=== PATIENT | female | born 1980 | race American Indian/Alaskan Native ===

== ENCOUNTER 2017-11-17 12:49 | Inpatient (IN) | payer BC ==
--- NOTE | 2017-11-17 12:53 | ED PDOC ---
Arrival/HPI - General Time Seen by Provider: 11/17/17 12:52 Historian: Patient - History of Present Illness Narrative History of Present Illness (Text): 11/17/17 12:53 37 y/o female, no significant pmh, nkda, c/o coughing and shortness of breath x 4 weeks with left ear pain with decrease hearing from the left ear x 2 weeks. Pt. stated that she was seen by another doctor for lt. ear pain and decrease hearing about 2 weeks ago with tinnitius and completed the course of the antibiotic. Pt. stated that she has been coughing as well with for the past 4 weeks, no night sweat, no dizziness, no rash, no numbness or tingling, no other medical or psychological complaints. Past Medical History - Provider Review Nursing Documentation Reviewed: Yes Family/Social History - Physician Review Nursing Documentation Reviewed: Yes Family/Social History: Unknown Family HX Allergies/Home Meds Allergies/Adverse Reactions: Allergies No Known Allergies Allergy (Verified 11/17/17 13:17) Home Medications: Home Meds Medication Instructions Recorded Confirmed No Known Home Med 11/17/17 11/17/17 Review of Systems - Review of Systems Constitutional: absent: Fatigue, Fevers Eyes: absent: Vision Changes ENT: Tinnitus (lt. ), Other (lt. ear pain and decrease hearing). absent: Hearing Changes, Voice Changes, Sore Throat, Rhinorrhea Respiratory: SOB, Cough, Wheezing. absent: Sputum Cardiovascular: absent: Chest Pain Gastrointestinal: absent: Abdominal Pain, Diarrhea, Nausea, Vomiting Skin: absent: Rash, Pruritis Neurological: absent: Headache, Dizziness Psychiatric: absent: Anxiety, Depression, Suicidal Ideation Physical Exam Vital Signs Reviewed: Yes Vital Signs Temp Pulse Resp BP Pulse Ox 11/17/17 16:05 88 18 96/58 L 100 11/17/17 13:13 97.9 F 113 H 20 106/62 96 Temperature: Afebrile Blood Pressure: Normal Pulse: Tachycardic Respiratory Rate: Normal Appearance: Positive for: Well-Appearing, Non-Toxic, Comfortable Pain Distress: Mild Mental Status: Positive for: Alert and Oriented X 3 - Systems Exam Head: Present: Atraumatic, Normocephalic Pupils: Present: PERRL Extroacular Muscles: Present: EOMI Conjunctiva: Present: Normal Ears: Present: NORMAL TM, Normal Canal, Other (no mastoid tenderness, no visible auditory canals erythematous or swelling, able to hear from the left ear with whispering but not as clear as the right ear as per patient. ). No: Erythema, TM Bulging, Fluid, TM Perf Mouth: Present: Moist Mucous Membranes Pharnyx: No: ERYTHEMA, EXUDATE, TONSILS ENLARGED, Muffled/Hoarse Voice Nose (External): Present: Atraumatic. No: Abrasion, Contusion, Laceration Nose (Internal): Present: Normal Inspection, No Active Bleeding. No: Rhinorrhea , Septal Hematoma, Epistaxis Neck: Present: Normal Range of Motion, Trachea Midline. No: MIDLINE TENDERNESS , Paraspinal Tenderness, Lymphadenopathy Respiratory/Chest: Present: Wheezes (Lt. mid lobe), Rales. No: Respiratory Distress, Accessory Muscle Use, Decreased Breath Sounds, Retracting, Rhonchi, Tachypneic, Tender to Palpation Cardiovascular: Present: Regular Rate and Rhythm, Normal S1, S2. No: Murmurs Abdomen: Present: Normal Bowel Sounds. No: Tenderness, Distention, Peritoneal Signs, Rebound, Guarding Back: Present: Normal Inspection Upper Extremity: Present: Normal Inspection. No: Cyanosis, Edema Lower Extremity: Present: Normal Inspection. No: Edema Neurological: Present: GCS=15, Speech Normal, Motor Func Grossly Intact, Gait Normal, Memory Normal Skin: Present: Warm, Dry, Normal Color. No: Rashes Psychiatric: Present: Alert, Oriented x 3, Normal Insight, Normal Concentration Medical Decision Making ED Course and Treatment: 11/17/17 13:36 -labs/dimer -chest xray -duoneb -observe and reassess 11/17/17 14:26 -Urine hcg negative -Chest xray show no active disease -Labs are non-significant except wbc 14.2, d-dimer 396, CTA ordered -UA show no UTI -Tachycardic, IVF ordered 11/17/17 17:33 -CTA show no evidence of acute central pulmonary embolus. Note however that the distal branches particularly in the left lower lobe are poorly seen due to the presence of bilateral posterior lower lobe consolidation changes. Findings most likely represent infiltrate changes rather than chronic infarcts as detailed above. Clinical correlation recommended. -IV rocephine and azithromycin/blood cultures ordered. -I discussed the case/radiology result with Dr. Godwin, stated this is pneumonia and unlikely PE with no anticoagulant needed. -Pt. has exertional shortness of breath and wheezing, admits chills at night but no fever, wbc 14.2 with tachycardia and chills, clinically appear bilateral consolidations which she will need IV antibiotic and clinically need to be admitted to rule out PE. Therefore the patient will need admission. -Paging the [facility] consultant Dr. Coates for admission. 11/17/17 18:08 -Pt. lactic acid 2.4/tachycardic/wbc 14.2, code sepsis paged, no signs of septic shock, no IV bolus 30cc/kg indicated. 11/17/17 18:27 -I spoke to Dr. Coates including the labs/CT readings, agreed this is likely bilateral pneumonia and no obvious PE, agreed on anticoagulant indicated, admit to [facility] for admission. -I discussed with Dr. Godwin about the case and agreed on the admission, Dr. Godwin is busy and taking care of critical care patient which he request me to put in the admission order. - Lab Interpretations Lab Results: 11/17/17 13:45 11/17/17 13:45 Lab Results 11/17/17 17:45: pO2 50, VBG pH 7.29 L, VBG pCO2 53.0, VBG HCO3 25.5, VBG Total CO2 27.1, VBG O2 Sat (Calc) 86.9 H, VBG Base Excess -1.9 L, VBG Potassium 3.6, Glucose 99, Lactate 2.4 H, FiO2 21.0, Sodium 138.0, Chloride 105.0, Venous Blood Potassium 3.6 11/17/17 14:20: Urine Color Yellow, Urine Appearance Clear, Urine pH 7.0, Ur Specific [place] 1.010, Urine Protein Negative, Urine Glucose (UA) Negative, Urine Ketones Negative, Urine Blood Negative, Urine Nitrate Negative, Urine Bilirubin Negative, Urine Urobilinogen 1.0 H, Ur Leukocyte Esterase Negative 11/17/17 13:45: PT 15.0 H, INR 1.31 H, APTT 29.6 11/17/17 13:45: WBC 14.2 H, RBC 4.07, Hgb 12.7, Hct 37.7, MCV 92.6, MCH 31.2, MCHC 33.7, RDW 12.3, Plt Count 289, MPV 9.9, Gran % 82.1 H, Lymph % (Auto) 8.2 L , [place] % (Auto) 9.3 H, Eos % (Auto) 0.3 L, Baso % (Auto) 0.1, Gran # 11.67 H, Lymph # 1.2, [place] # 1.3 H, Eos # 0.0, Baso # 0.02 11/17/17 13:45: Sodium 137, Potassium 4.2, Chloride 100, Carbon Dioxide 30, Anion Gap 12, BUN 8, Creatinine 0.7, Est GFR ( Amer) > 60, Est GFR (Non- Af Amer) > 60, Random Glucose 97, Calcium 9.5, Total Bilirubin 0.7, AST 23, ALT 27, Alkaline Phosphatase 65, Total Protein 8.7 H, Albumin 4.2, Globulin 4.5, Albumin/Globulin Ratio 0.9 L 11/17/17 13:45: D-Dimer, Quantitative 396 H I have reviewed the lab results: Yes Interpretation: Abnormal lab values (wbc 14.2) - RAD Interpretation Radiology Orders: 11/17/17 13:22 CHEST TWO VIEWS (PA/LAT) [RAD] Stat 11/17/17 14:23 ANGIO CHEST PE PROTOCOL [CT] Stat Chest xray: HISTORY: cough x 4 weeks COMPARISON: No prior. TECHNIQUE: Chest PA and lateral FINDINGS: LUNGS: No active pulmonary disease. PLEURA: No significant pleural effusion identified. No pneumothorax apparent. CARDIOVASCULAR: Normal. OSSEOUS STRUCTURES: No significant abnormalities. VISUALIZED UPPER ABDOMEN: Normal. OTHER FINDINGS: None. IMPRESSION: No active disease. CTA Chest: PROCEDURE: CT Chest with contrast (Pulmonary Angiogram) HISTORY: cough x 4 weeks, wheezing, elevated d-dimer COMPARISON: Correlation made with chest radiograph obtained earlier same day TECHNIQUE: Axial computed tomography images were obtained of the chest in the pulmonary arterial phase of enhancement. Coronal and sagittal reformatted images were created and reviewed. Intravenous contrast dose: 100 cc Visipaque 320 contrast material. Radiation dose: Total exam DLP = 169.77 mGy-cm. This CT exam was performed using one or more of the following dose reduction techniques: Automated exposure control, adjustment of the mA and/or kV according to patient size, and/or use of iterative reconstruction technique. FINDINGS: PULMONARY ARTERIES: Visualized pulmonary trunk, right and left main, lobar, segmental and proximal subsegmental branches of the pulmonary arteries are well opacified with no definitive filling defects seen to suggest acute pulmonary embolus. . The distal branches particularly in the posterior lower lung ledezma are not well delineated due to the presence of a patchy bilateral atelectasis and or infiltrate changes. Findings most likely represent bilateral pneumonia however note that the possibility of a chronic bilateral lower lobe infarcts with re- cannulization of the distal pulmonary emboli cannot be completely excluded though this is under likely. Clinical correlation recommended. . The pulmonary trunk measures approximately 2 cm. . AORTA: Ascending thoracic aorta measures approximately LUNGS: Patchy bilateral posterior lower lobe atelectatic and or infiltrate changes are present. . In addition, there is some minor linear scarring and/or chronic atelectasis in the the inferior PLEURAL SPACES: Unremarkable. No effusion or pneumothorax. HEART: Heart size within range of normal. No significant pericardial effusion. Ascending thoracic aorta measures approximately 2.4 cm and descending thoracic aorta measures approximately 1.8 cm. Three-vessel arch. LYMPH NODES: No lymphadenopathy. No significant mediastinal or hilar adenopathy. BONES, CHEST WALL: Minor multilevel degenerative spondylosis of the thoracic spine. No acute compression fractures no retropulsed fragments. OTHER FINDINGS: Unremarkable. IMPRESSION: No evidence of acute central pulmonary embolus. Note however that the distal branches particularly in the left lower lobe are poorly seen due to the presence of bilateral posterior lower lobe consolidation changes. Findings most likely represent infiltrate changes rather than chronic infarcts as detailed above. Clinical correlation recommended. Veneer Sorter: Radiologist - Medication Orders Current Medication Orders: Azithromycin (Zithromax 500mg In Ns) 500 mg in 250 mls @ 167 mls/hr IVPB STAT STA PRN Reason: Protocol Stop: 11/17/17 18:48 Discontinued Medications Albuterol/Ipratropium (Duoneb 3 Mg/0.5 Mg (3 Ml) Ud) 3 ml IH STAT STA Stop: 11/17/17 13:24 Last Admin: 11/17/17 13:41 Dose: 3 ml Albuterol/Ipratropium (Duoneb 3 Mg/0.5 Mg (3 Ml) Ud) 3 ml IH STAT STA Stop: 11/17/17 13:24 Last Admin: 11/17/17 14:00 Dose: 3 ml Sodium Chloride (Sodium Chloride 0.9%) 1,000 mls @ 999 mls/hr IV .Q1H1M STA Stop: 11/17/17 15:24 Last Admin: 11/17/17 14:52 Dose: 999 mls/hr eMAR Start Stop Document 11/17/17 14:52 SRE (Rec: 11/17/17 14:53 [id number] [id number]) Intravenous Solution Start Date 11/17/17 Start Time 14:50 End Date 11/17/17 End time 15:50 Total Infusion Time 60 Ceftriaxone Sodium (Rocephin 1 Gram Ivpb) 1 gm in 100 mls @ 200 mls/hr IVPB STAT STA PRN Reason: Protocol Stop: 11/17/17 17:48 Last Admin: 11/17/17 17:00 Dose: 200 mls/hr eMAR Start Stop Document 11/17/17 17:00 SRE (Rec: 11/17/17 17:50 SRE [id number]) Intravenous Solution Start Date 11/17/17 Start Time 17:30 End Date 11/17/17 End time 18:30 Total Infusion Time 60 - PA / LOCAL OPERATOR / Resident Statement /DO has reviewed & agrees with the documentation as recorded. Disposition/Present on Arrival - Present on Arrival Any Indicators Present on Arrival: No History of DVT/PE: No History of Uncontrolled Diabetes: No Urinary Catheter: No History of Decub. Ulcer: No - Disposition Have Diagnosis and Disposition been Completed?: Yes Diagnosis: Bilateral pneumonia, Shortness of breath, Abnormal computed tomography angiography (CTA), Sepsis Disposition: HOSPITALIZED Disposition Time: 17:40 Patient Plan: Admission, Telemetry Patient Problems: Current Active Problems Problem Status Onset Abnormal computed tomography angiography (CTA) Acute Bilateral pneumonia Acute Sepsis Acute Shortness of breath Acute Condition: STABLE Discharge Instructions (ExitCare): Sepsis (ED) Referrals: Toothpickelizabeth Kelley, [Primary Care Provider] - Follow up with primary
[2017-11-17 13:12] VITALS: BMI 21.9
[2017-11-17] MEDS ORDERED: Albuterol-Ipratrop 3 mg / 0.5 (3 ml) UD IH STA ×2 (13:23)
[2017-11-17 14:00] LABS: BASO # 0.02 K/mm3 (0.0-2.0); BASO % 0.1 % (0.0-3.0); EOS % 0.3 % (1.5-5.0); GRAN # 11.67 (1.4-6.5); GRAN % 82.1 % (50.0-68.0); HEMOGLOBIN 12.7 g/dL (12.0-16.0); LYMPH # 1.2 (1.2-3.4); LYMPH % 8.2 % (22.0-35.0); MEAN CELL VOLUME 92.6 fl (80.0-105.0); MEAN CORPUSCULAR HEMOGLOBIN 31.2 pg (25.0-35.0); MEAN CORPUSCULAR HGB CONC 33.7 g/dl (31.0-37.0); MEAN PLATELET VOLUME 9.9 fl (7.0-11.0); MONO # 1.3 (0.1-0.6); MONO % 9.3 % (1.0-6.0); RBC 4.07 10^6/uL (3.5-6.1); RED CELL DISTRIBUTION WIDTH 12.3 % (11.5-14.5); WHITE BLOOD COUNT 14.2 10^3/ul (4.5-11.0)
[2017-11-17 14:09] LABS: ALB/GLOB RATIO 0.9 (1.1-1.8); ALBUMIN 4.2 g/dL (3.0-4.8); ALT/SGPT 27 U/L (7-56); AST/SGOT 23 U/L (14-36); BLOOD UREA NITROGEN 8 mg/dL (7-21); CALCIUM 9.5 mg/dL (8.4-10.5); GFR AFRICAN-AMERICAN > 60; GFR NON-AFRICAN AMERICAN > 60
--- NOTE | 2017-11-17 14:20 | RAD ---
HISTORY: cough x 4 weeks COMPARISON: No prior. TECHNIQUE: Chest PA and lateral FINDINGS: LUNGS: No active pulmonary disease. PLEURA: No significant pleural effusion identified. No pneumothorax apparent. CARDIOVASCULAR: Normal. OSSEOUS STRUCTURES: No significant abnormalities. VISUALIZED UPPER ABDOMEN: Normal. OTHER FINDINGS: None. IMPRESSION: No active disease.
[2017-11-17] MEDS ORDERED: Sodium Chloride 0.9% 1,000 ML IV STA (14:24)
[2017-11-17] MEDS ORDERED: Iodixanol 320 MG/ML 100 ML BOTTLE IV ONE (14:53)
[2017-11-17 14:55] LABS: URINE BILIRUBIN NEGATIVE (NEGATIVE); URINE BLOOD NEGATIVE (NEGATIVE); URINE GLUCOSE (UA) NEGATIVE (NEGATIVE); URINE LEUKOCYTE ESTERASE NEGATIVE Leu/uL (NEGATIVE); URINE NITRATE NEGATIVE (NEGATIVE); URINE PROTEIN NEGATIVE mg/dL (<30 mg/dL)
[2017-11-17 15:01] LABS: URINE APPEARANCE CLEAR (CLEAR); URINE COLOR YELLOW (YELLOW)
--- NOTE | 2017-11-17 17:16 | CT ---
PROCEDURE: CT Chest with contrast (Pulmonary Angiogram) HISTORY: cough x 4 weeks, wheezing, elevated d-dimer COMPARISON: Correlation made with chest radiograph obtained earlier same day TECHNIQUE: Axial computed tomography images were obtained of the chest in the pulmonary arterial phase of enhancement. Coronal and sagittal reformatted images were created and reviewed. Intravenous contrast dose: 100 cc Visipaque 320 contrast material. Radiation dose: Total exam DLP = 169.77 mGy-cm. This CT exam was performed using one or more of the following dose reduction techniques: Automated exposure control, adjustment of the mA and/or kV according to patient size, and/or use of iterative reconstruction technique. FINDINGS: PULMONARY ARTERIES: Visualized pulmonary trunk, right and left main, lobar, segmental and proximal subsegmental branches of the pulmonary arteries are well opacified with no definitive filling defects seen to suggest acute pulmonary embolus. . The distal branches particularly in the posterior lower lung ledezma are not well delineated due to the presence of a patchy bilateral atelectasis and or infiltrate changes. Findings most likely represent bilateral pneumonia however note that the possibility of a chronic bilateral lower lobe infarcts with re- cannulization of the distal pulmonary emboli cannot be completely excluded though this is under likely. Clinical correlation recommended. . The pulmonary trunk measures approximately 2 cm. . AORTA: Ascending thoracic aorta measures approximately LUNGS: Patchy bilateral posterior lower lobe atelectatic and or infiltrate changes are present. . In addition, there is some minor linear scarring and/or chronic atelectasis in the the inferior PLEURAL SPACES: Unremarkable. No effusion or pneumothorax. HEART: Heart size within range of normal. No significant pericardial effusion. Ascending thoracic aorta measures approximately 2.4 cm and descending thoracic aorta measures approximately 1.8 cm. Three-vessel arch. LYMPH NODES: No lymphadenopathy. No significant mediastinal or hilar adenopathy. BONES, CHEST WALL: Minor multilevel degenerative spondylosis of the thoracic spine. No acute compression fractures no retropulsed fragments. OTHER FINDINGS: Unremarkable. IMPRESSION: No evidence of acute central pulmonary embolus. Note however that the distal branches particularly in the left lower lobe are poorly seen due to the presence of bilateral posterior lower lobe consolidation changes. Findings most likely represent infiltrate changes rather than chronic infarcts as detailed above. Clinical correlation recommended. These findings discussed with YUDI Means at approximately 5:09 p.m. with written down and read back verification.
[2017-11-17] MEDS ORDERED: Azithromycin 500MG/NS 250ml 500 MG/250 ML BAG IVPB STA (17:19)
[2017-11-17] MEDS ORDERED: cefTRIAXone 1 gm 1 GM/100 ML BAG IVPB STA (17:19)
[2017-11-17 18:00] LABS: INR 1.31 (0.93-1.08); PARTIAL THROMBOPLASTIN TIME 29.6 Seconds (25.1-36.5)
[2017-11-17 18:04] LABS: VENOUS BLOOD GAS BASE EXCESS -1.9 mmol/L (0.0-2.0); VENOUS BLOOD GAS PO2 50 mm/Hg (30-55); VENOUS BLOOD PH 7.29 (7.32-7.43)
[2017-11-17] MEDS: Sodium Chloride 0.9% 1,000 ML IV SCH (18:41)
[2017-11-17] MEDS ORDERED: Promethazine DM 6.25 mg-15 mg/5 ml Syrup PO STA (20:32)
[2017-11-17] MEDS: guaiFENesin DM 100 mg-10 mg/5 ml UD PO PRN (20:41)
[2017-11-17] MEDS: Albuterol-Ipratrop 3 mg / 0.5 (3 ml) UD IH SCH (21:01)
[2017-11-17 21:18] LABS: VENOUS BLOOD GAS BASE EXCESS 2.4 mmol/L (0.0-2.0); VENOUS BLOOD GAS PO2 38 mm/Hg (30-55); VENOUS BLOOD PH 7.36 (7.32-7.43)
--- NOTE | 2017-11-17 22:30 | PCM.SEPTIC ---
Sepsis Progress Note - Reassessment Type Date of Evaluation: 11/17/17 Time of Evaluation: 22:28 Reassessment Type: Non-invasive reassessment - Non Invasive Reassessment Were the most recent vital sign reviewed: Yes Vital Sign (Latest): Temp Pulse Resp BP Pulse Ox 100.1 F H 101 H 18 126/71 99 11/17/17 20:56 11/17/17 20:56 11/17/17 20:56 11/17/17 21:00 11/17/17 20:56 Cardiovascular: Yes: Tachycardia. No: Regular Rate, Rhythm, Bradycardia, Irregularly Irregular Respiratory: Yes: Rhonchi (Bilateral bases). No: Normal Breath Sounds, Decreased Breath Sounds, Accessory Muscle Use, Crackles, Rales, Stridor, Wheezing, Respiratory Distress Capillary Refill: Normal (Less than 2 sec) Skin: Normal Color
[2017-11-18] MEDS: Albuterol-Ipratrop 3 mg / 0.5 (3 ml) UD IH SCH ×3 (01:44→19:51)
[2017-11-18 08:10] LABS: HEMOGLOBIN 10.5 g/dL (12.0-16.0); MEAN CELL VOLUME 93.1 fl (80.0-105.0); MEAN CORPUSCULAR HEMOGLOBIN 30.3 pg (25.0-35.0); MEAN CORPUSCULAR HGB CONC 32.6 g/dl (31.0-37.0); MEAN PLATELET VOLUME 10.2 fl (7.0-11.0); RBC 3.46 10^6/uL (3.5-6.1); RED CELL DISTRIBUTION WIDTH 12.6 % (11.5-14.5); WHITE BLOOD COUNT 11.5 10^3/ul (4.5-11.0)
[2017-11-18] MEDS: cefTRIAXone 1 gm 1 GM/100 ML BAG IVPB SCH (09:16)
[2017-11-18] MEDS: Azithromycin 500 MG in Sodium Chloride 0.9% 250 ML IV SCH (09:18)
[2017-11-18] MEDS: Sodium Chloride 0.9% 1,000 ML IV SCH ×2 (09:18→17:01)
[2017-11-18 16:25] LABS: IRON 27 ug/dL (45-180)
[2017-11-18 16:35] LABS: TOTAL IRON BINDING CAPACITY 220 ug/dL (265-497)
[2017-11-18 16:40] LABS: % IRON SATURATION 12 % (20-55)
--- NOTE | 2017-11-18 17:02 | CP.PCM.CON ---
History of Present Illness - History of Present Illness History of Present Illness: Infectious Disease Consultation: November 37 yo female with no previous medical history presenting with cough and shortness of breath for the past 4 weeks with 2 week history of left ear pain and tinnitus. Patient received antibiotics of Amoxicillin with improvement of the left ear pain. She still has decreased hearing in the left ear. She complains also of left lower chest/flank pain. Chills started about 1 week ago. PMHx: Denies PSHx: Denies Allergies: NKDA Social Hx: No tobacco, EtOH, or illicit drug use Has two children - 8 months and 4 years. 4 yo is in school. 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 Active Medications Acetaminophen (Tylenol 325mg Tab) 650 mg PO Q6H PRN PRN Reason: Fever >100.4 F Albuterol/Ipratropium (Duoneb 3 Mg/0.5 Mg (3 Ml) Ud) 3 ml IH [id number] ROBBY Last Admin: 11/18/17 10:22 Dose: 3 ml Guaifenesin/Dextromethorphan (Robitussin Dm) 5 ml PO Q4H PRN PRN Reason: Cough Last Admin: 11/17/17 20:41 Dose: 5 ml Sodium Chloride (Sodium Chloride 0.9%) 1,000 mls @ 100 mls/hr IV .Q10H ROBBY Last Admin: 11/18/17 09:18 Dose: 100 mls/hr Ceftriaxone Sodium (Rocephin 1 Gram Ivpb) 1 gm in 100 mls @ 100 mls/hr IVPB DAILY ROBBY PRN Reason: Protocol Last Admin: 11/18/17 09:16 Dose: 100 mls/hr Azithromycin 500 mg/ Sodium (Chloride) 250 mls @ 250 mls/hr IV DAILY ROBBY PRN Reason: Protocol Last Admin: 11/18/17 09:18 Dose: 250 mls/hr Family Hx: none given ROS: No fevers, nausea, vomiting, diarrhea, headaches, dizziness, chest pain, abdominal pain, melena, hematuria, hematemesis, hematochezia, depression, anxiety. Patient with left ear pain, cough, SOB, chills. Past Patient History - Infectious Disease Hx of Infectious Diseases: None - Past Social History Smoking Status: Never Smoked - MUSCULOSKELETAL/RHEUMATOLOGICAL Hx Musculoskeletal Disorders: No Hx Falls: No Hx Unsteady Gait: No - GENITOURINARY/GYNECOLOGICAL Hx Sexually Transmitted Disorders: No Hx Urinary Tract Infection: No - PSYCHIATRIC Hx Psychophysiologic Disorder: No Hx Physical Abuse: No Hx Sexual Abuse: No - SURGICAL HISTORY Hx Surgeries: Yes Other/Comment: - ANESTHESIA Hx Anesthesia: No Hx Anesthesia Reactions: No Hx Malignant Hyperthermia: No Meds Allergies/Adverse Reactions: Allergies Allergy/AdvReac Type Severity Reaction Status Date / Time No Known Allergies Allergy Verified 11/17/17 13:17 - Medications Medications: Current Medications Acetaminophen (Tylenol 325mg Tab) 650 mg PO Q6H PRN PRN Reason: Fever >100.4 F Albuterol/Ipratropium (Duoneb 3 Mg/0.5 Mg (3 Ml) Ud) 3 ml IH [id number] ROBBY Last Admin: 11/18/17 10:22 Dose: 3 ml Guaifenesin/Dextromethorphan (Robitussin Dm) 5 ml PO Q4H PRN PRN Reason: Cough Last Admin: 11/17/17 20:41 Dose: 5 ml Sodium Chloride (Sodium Chloride 0.9%) 1,000 mls @ 100 mls/hr IV .Q10H ROBBY Last Admin: 11/18/17 09:18 Dose: 100 mls/hr Ceftriaxone Sodium (Rocephin 1 Gram Ivpb) 1 gm in 100 mls @ 100 mls/hr IVPB DAILY ROBBY PRN Reason: Protocol Last Admin: 11/18/17 09:16 Dose: 100 mls/hr Azithromycin 500 mg/ Sodium (Chloride) 250 mls @ 250 mls/hr IV DAILY ROBBY PRN Reason: Protocol Last Admin: 11/18/17 09:18 Dose: 250 mls/hr Physical Exam - Constitutional Appears: Non-toxic, No Acute Distress - Head Exam Head Exam: ATRAUMATIC, NORMOCEPHALIC - Eye Exam Eye Exam: EOMI, PERRL Pupil Exam: NORMAL ACCOMODATION, PERRL - ENT Exam ENT Exam: Mucous Membranes Moist, Normal External Ear Exam, TM's Normal Bilaterally - Neck Exam Neck exam: Positive for: Full Rom, Normal Inspection - Respiratory Exam Respiratory Exam: Clear to Auscultation Bilateral, NORMAL BREATHING PATTERN. absent: Rales, Rhonchi, Wheezes - Cardiovascular Exam Cardiovascular Exam: REGULAR RHYTHM, RRR, +S1, +S2 - GI/Abdominal Exam GI & Abdominal Exam: Normal Bowel Sounds, Soft. absent: Distended, Tenderness - Extremities Exam Extremities exam: Positive for: full ROM, normal inspection - Neurological Exam Neurological exam: Alert, CN II-XII Intact, Normal Gait, Oriented x3 - Psychiatric Exam Psychiatric exam: Normal Affect, Normal Mood - Skin Skin Exam: Intact, Normal Color, Warm Results - Vital Signs Recent Vital Signs: Last Vital Signs Temp 98.1 F 11/18/17 16:19 Pulse 94 H 11/18/17 16:19 Resp 20 11/18/17 16:19 BP 103/67 11/18/17 16:19 Pulse Ox 99 11/18/17 16:19 - Labs Result Diagrams: 11/18/17 07:00 11/17/17 13:45 Labs: Laboratory Results - last 24 hr 11/17/17 11/18/17 11/18/17 21:10 07:00 08:00 WBC 11.5 H RBC 3.46 L Hgb 10.5 L D Hct 32.2 L MCV 93.1 MCH 30.3 MCHC 32.6 RDW 12.6 Plt Count 271 MPV 10.2 pO2 38 VBG pH 7.36 VBG pCO2 51.0 VBG HCO3 28.8 H VBG Total CO2 30.4 H VBG O2 Sat (Calc) 73.3 H VBG Base Excess 2.4 H VBG Potassium 4.0 Sodium 137.0 Chloride 104.0 Glucose 134 H Lactate 1.4 FiO2 21.0 Iron 27 L TIBC 220 L % Saturation 12 L Venous Blood Potassium 4.0 Assessment & Plan - Assessment and Plan (Free Text) Assessment: 37 yo female with 4 week history of cough and shortness of breath with left ear pain for the past 2 weeks. Was on antibiotics for the left ear pain without improvement. The patient's Chest X-ray is negative but the CT Chest is showing bilateral posterior lobe consolidation changes. The patient is awake and alert and denies prior medical history. Mild leukocytosis. Mild anemia. Low iron levels. Started on Rocephin and Azithromycin for antibiotic coverage at this time. Possible lower lobe pneumonia left worse than right. Left ear hearing loss/decreased hearing. Supportive care. Will see how patient does after 24 hours of antibiotics. Thank you for allowing me to participate in the care of the patient, we will follow with you.
[2017-11-18] MEDS: guaiFENesin DM 100 mg-10 mg/5 ml UD PO PRN (21:24)
[2017-11-18 22:46] LABS: FOLATE 8.7 ng/mL
--- NOTE | 2017-11-19 02:05 | HP ---
HISTORY OF PRESENT ILLNESS: This 37-year-old female was examined at her bedside on the cardiac hallman. Her case was reviewed in detail with herself, Emergency Room physician and her nurse Marifer Cates, registered nurse. The patient presented to the [facility] Emergency Room on the evening of 11/17/2017. She complained of a cough and shortness of breath that has been ongoing for the past several weeks. 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 Approximately 2 weeks ago. She was given a 10-day prescription of Augmentin 875 mg p.o. b.i.d., which she states she completed. After finishing the antibiotic, she still felt of dry cough with shortness of breath which prompted her to come to the [facility] ER. There she was noted on chest CT to have patchy bilateral posterior lower lobe atelectasis versus infiltrative changes. She also was noted to have an elevated white blood cell count and was admitted for bronchial pneumonia. On further review of her chest CT of the lung, there was no evidence of acute central pulmonary embolism and the patient is admitted to the cardiac hallman for further treatment and workup of the above. PAST MEDICAL HISTORY: Significant for 2 childbirths, the second which was a for which she was told she had iron-deficiency anemia. The patient states her menstrual periods have resumed and are not abnormal in blood loss amount according to the patient. On further questioning the patient, she denies any significant past medical history. She denies any surgical history other than . ALLERGIES: SHE STATES SHE HAS NO KNOW ALLERGIES TO MEDICATIONS. MEDICATIONS: She is on no chronic outpatient medication. FAMILY HISTORY: Her father in his 60s of end-stage renal disease and her mother is alive in her 50s with atherosclerotic heart disease. REVIEW OF SYSTEMS: CONSTITUTIONAL: The patient states she felt feverish, but did not record a temperature but was complaining of chills over the past several days. VITAL SIGNS: Last evening was noted to have a T-max of 100.1. HEENT: Head review no headache or seizures. Eye review no change in visual acuity. Ear review no hearing loss. Throat review no swallowing difficulty. NECK: Review no stiffness. CARDIAC: Review no knowledge of atherosclerotic heart disease or hypertension. PULMONARY: As per HPI. No hemoptysis. GI: No dyspepsia. : No dysuria. SKIN: No rash. VASCULAR: No claudication. PSYCHOLOGICAL: No knowledge of depression. ENDOCRINOLOGIC: Denies diabetes. PHYSICAL EXAMINATION VITAL SIGNS: quality assurance monitor final normal sinus rhythm. Temperature 97.8, respirations 18, pulse 67, blood pressure 105/69. Pulse ox 97%. HEENT: Head: Normocephalic, atraumatic. Eyes: No icterus. Ears clear. Throat: Noninjected. NECK: Supple. HEART: Regular S1, S2. LUNGS: Have rhonchi at both bases posteriorly with E to A changes also. No wheezing, no rales. ABDOMEN: Soft. EXTREMITIES: No edema. SKIN: Without rash. NEUROLOGICAL: Intact. PSYCHOLOGICAL: Alert. VASCULAR: Legs warm to touch. LABORATORY DATA: Admission CBC; white count 14,200, hemoglobin 12.7, hematocrit 37.7, platelets 289,000. Repeat CBC ;11,500 white count, hemoglobin 10.5, hematocrit 32.2, platelets 271,000. PT/INR 1.31, PTT 29.6. Sodium 137, K 4.2, chloride 100, bicarb 30, BUN 8, creatinine 0.7, random blood sugar 97. Bilirubin 0.7, AST 23, ALT 27, alk phos 65. Urinalysis unremarkable. Urine negative. Chest x-ray shows no significant pleural effusion, no pneumothorax present. Chest CT was reviewed. There is no evidence of central pulmonary embolism. There is patchy bilateral posterior lower lobe atelectasis or infiltrative changes seen. IMPRESSION: This is a 37-year-old female with bronchial pneumonia, leukocytosis, iron-deficiency anemia with admission elevated fever, white count, rule out sepsis. PLAN: As discussed with the patient and nursing, will be to check the results of blood cultures. She will continue on dual nebulizer q. 6 hours, Robitussin DM 5 mL p.o. q. 4 hours p.r.n. cough, Rocephin 1 g IV q. 24, 0.9 saline 100 mL/hour, Zithromax 500 mg IV q. 24. Tylenol 650 p.o. q. 6 hours p.r.n. pain or temperature greater than 101. She has an order for 2 liters of nasal O2 p.r.n. She continues on a regular soft bland diet. I have ordered a consultation with Dr. Chidi Dave from Infectious Disease for completeness sake and the patient will be allowed to have bathroom privileges with assistance. I will also order an anemia workup including iron, TIBC, ferritin, B12 and folic acid levels and I have discussed with the patient, she may need additional supplementation based on the results of her anemia workup. All of the above was discussed in detail with the patient and nursing at bedside. Greater than 75 minutes was spent in the care, management, review of x-rays, labs, medication orders and discussion with co-consultants regarding all of the above. All questions were answered. Cristiana Coates MD MTDD
[2017-11-19] MEDS: Albuterol-Ipratrop 3 mg / 0.5 (3 ml) UD IH SCH ×2 (02:28→07:52)
[2017-11-19] MEDS: Sodium Chloride 0.9% 1,000 ML IV SCH (04:30)
[2017-11-19 08:50] VITALS: BP 120/79; RESP 20; TEMP 98.1; O2SAT 99
[2017-11-19] MEDS: cefTRIAXone 1 gm 1 GM/100 ML BAG IVPB SCH (08:59)
[2017-11-19] MEDS: Azithromycin 500 MG in Sodium Chloride 0.9% 250 ML IV SCH (08:59)
[2017-11-19 10:08] VITALS: PULSE 64
--- NOTE | 2017-11-19 16:59 | CP.PCM.PN ---
Subjective - Date & Time of Evaluation Date of Evaluation: 11/19/17 Time of Evaluation: 12:00 - Subjective Subjective: Infectious Disease Follow Up: November 19, 2017 37 yo female with no previous medical history presenting with cough and shortness of breath for the past 4 weeks with 2 week history of left ear pain and tinnitus. Patient received antibiotics of Amoxicillin with improvement of the left ear pain. She still has decreased hearing in the left ear. She complains also of left lower chest/flank pain. Chills started about 1 week ago. Feeling better today. Patient wants to go home. Objective - Vital Signs/Intake and Output Vital Signs (last 24 hours): Temp Pulse Resp BP Pulse Ox 98.1 F 64 20 120/79 99 11/19/17 06:00 11/19/17 10:00 11/19/17 06:00 11/19/17 06:00 11/19/17 06:00 Intake and Output: 11/19/17 11/19/17 06:59 18:59 Intake Total 1680 Output Total 0 Balance 1680 - Labs Labs: 11/18/17 07:00 PT 15.0 SECONDS (9.4-12.5) H 11/17/17 13:45 INR 1.31 (0.93-1.08) H 11/17/17 13:45 APTT 29.6 Seconds (25.1-36.5) 11/17/17 13:45 - Constitutional Appears: Non-toxic, No Acute Distress - Head Exam Head Exam: ATRAUMATIC, NORMOCEPHALIC - Eye Exam Eye Exam: EOMI, PERRL Pupil Exam: NORMAL ACCOMODATION, PERRL - ENT Exam ENT Exam: Mucous Membranes Moist, Normal External Ear Exam, TM's Normal Bilaterally - Neck Exam Neck Exam: Full ROM, Normal Inspection - Respiratory Exam Respiratory Exam: Clear to Ausculation Bilateral, NORMAL BREATHING PATTERN. absent: Rales, Rhonchi, Wheezes - Cardiovascular Exam Cardiovascular Exam: REGULAR RHYTHM, RRR, +S1, +S2 - GI/Abdominal Exam GI & Abdominal Exam: Soft, Normal Bowel Sounds. absent: Distended, Tenderness - Extremities Exam Extremities Exam: Full ROM, Normal Inspection - Neurological Exam Neurological Exam: Alert, Awake, CN II-XII Intact, Oriented x3 - Psychiatric Exam Psychiatric exam: Normal Affect, Normal Mood - Skin Skin Exam: Intact, Normal Color, Warm Assessment and Plan - Assessment and Plan (Free Text) Assessment: 37 yo female with 4 week history of cough and shortness of breath with left ear pain for the past 2 weeks. Was on antibiotics for the left ear pain without improvement. The patient's Chest X-ray is negative but the CT Chest is showing bilateral posterior lobe consolidation changes. The patient is awake and alert and denies prior medical history. Mild leukocytosis. Mild anemia. Low iron levels. Started on Rocephin and Azithromycin for antibiotic coverage at this time. Possible lower lobe pneumonia left worse than right. Left ear hearing loss/decreased hearing. Supportive care. Appears to be doing better this morning. The patient wants to go home. Can give Keflex 500mg PO TID for 7 days more. Thank you for allowing me to participate in the care of the patient, we will follow with you.
--- NOTE | 2017-11-20 11:15 | DS ---
Patient discharged to home. COMBINATION SAW OPERATOR: Dr. Chidi Dave from Infectious Disease. FINAL DIAGNOSES: Bilateral lower lobe bronchial pneumonia, iron-deficiency anemia. DISPOSITION: Home. Follow up with her personal medical physician, Dr. Best, prior to returning to work for medical clearance and return to work certification. DISCHARGE MEDICATIONS: Keflex 500 mg p.o. t.i.d. #21, Robitussin DM 5 mL p.o. q.6 hours p.r.n. cough, and ferrous gluconate 324 mg p.o. t.i.d. x1 month. The patient to follow up with PMD regarding iron-deficiency anemia and further laboratory testing. SUMMARY: This 37-year-old female was admitted to [facility] with cough, shortness of breath and CAT scan findings consistent with probable bilateral lower lung bronchial pneumonia. The patient was admitted, cultured, seen in consultation by Dr. Chidi Dave from Infectious Disease and treated with parenteral Rocephin and Zithromax. Blood culture showed no growth. Initial fever noted to be 100.1, improved and at the time of discharge, temperature was 98.1, respirations 20, pulse 61, blood pressure 120/79 with a pulse ox of 99% room air. DISCHARGE LABORATORY DATA: Showed initial white count 14,200 and on follow up, 11,500 with a hemoglobin of 10.5, hematocrit of 32.1, platelets of 271,000. Sodium 137, K 4.2, chloride 100, bicarb 30, BUN 8, creatinine 0.7, random blood sugar 97. Iron level 27 low, TIBC 220, and percent saturation 12 low. B12 levels greater than 1000, folic acid level 8.7 and all liver function was normal including bilirubin 0.7, AST 23, ALT 27 and alk phos 65. Patient was cleared for discharge to home by Infectious Disease. She was advised to follow up with PMD within the next 48 hours. She was advised to be compliant with prescription as outlined and to present to the [facility] ER for any change in signs and symptoms. The patient states she is not breast-feeding and is aware she needs further laboratory testing to ensure adequacy of treatment of her anemia. Hopefully, she will be compliant with all of the above. All of the above was discussed in detail with the patient in the presence of her nurse, Marifer Cates, registered nurse. Cristiana Coates MD [facility] # [id number] [place]
== END 2017-11-19 13:45 | disposition home or self-care (01) | DRG 195 ==
LOC: ED 12:49 → ERH 18:29 → 3RNO 21:49
PROVIDERS: ADMIT Internal Medicine; ATTEND Internal Medicine
DX: J18.0 Bronchopneumonia, unspecified organism (principal); D50.9 Iron deficiency anemia, unspecified

== ENCOUNTER 2018-09-09 15:11 | Emergency (ER) | payer BC, OTHER ==
[2018-09-09 15:12] VITALS: BMI 21.9
[2018-09-09 15:28] VITALS: BP 124/73; PULSE 95; RESP 18; TEMP 97.6; O2SAT 98
--- NOTE | 2018-09-09 15:36 | ED PDOC ---
Arrival/HPI - General Chief Complaint: GI Problem Time Seen by Provider: 09/09/18 15:30 Historian: Patient - History of Present Illness Narrative History of Present Illness (Text): 09/09/18 15:30 38 y/o female, pmh including pneumonia, nkda, c/o abdominal pain/nausea/diarrhea x 1 week. Pt. stated that she has epigastric pain with associated with nausea for 1 week, couple episode of watery diarrhea for the past 2 days, no night sweat, no fever or chills, no headache or night sweat, no rash, no dizziness, no change in vision, no numbness or tingling, no other medical or psychological complaints. Past Medical History - Provider Review Nursing Documentation Reviewed: Yes - Infectious Disease Hx of Infectious Diseases: None - Musculoskeletal/Rheumatological Hx Musculoskeletal Disorders: No Hx Falls: No Hx Unsteady Gait: No - Genitourinary/Gynecological Hx Sexually Transmitted Diseases: No Hx Urinary Tract Infection: No - Psychiatric Hx Psychophysiologic Disorder: No Hx Physical Abuse: No Hx Sexual Abuse: No Hx Substance Use: No - Surgical History Other/Comment: - Anesthesia Hx Anesthesia: No Hx Anesthesia Reactions: No Hx Malignant Hyperthermia: No Family/Social History - Physician Review Nursing Documentation Reviewed: Yes Family/Social History: Unknown Family HX Smoking Status: Never Smoked Hx Alcohol Use: No Hx Substance Use: No Allergies/Home Meds Allergies/Adverse Reactions: Allergies No Known Allergies Allergy (Verified 09/09/18 15:34) Review of Systems - Review of Systems Constitutional: absent: Fatigue, Fevers Eyes: absent: Vision Changes ENT: absent: Hearing Changes Respiratory: absent: SOB, Cough Cardiovascular: absent: Chest Pain Gastrointestinal: Abdominal Pain, Diarrhea, Nausea. absent: Vomiting Skin: absent: Rash, Pruritis, Skin Lesions Neurological: absent: Headache, Dizziness Psychiatric: absent: Anxiety, Depression, Suicidal Ideation Physical Exam Vital Signs Reviewed: Yes Vital Signs Temp Pulse Resp BP Pulse Ox 09/09/18 15:26 97.6 F 95 H 18 124/73 98 Temperature: Afebrile Blood Pressure: Normal Pulse: Regular Respiratory Rate: Normal Appearance: Positive for: Well-Appearing, Non-Toxic, Comfortable Pain Distress: Mild Mental Status: Positive for: Alert and Oriented X 3 - Systems Exam Head: Present: Atraumatic, Normocephalic Pupils: Present: PERRL Extroacular Muscles: Present: EOMI Conjunctiva: Present: Normal Mouth: Present: Moist Mucous Membranes Neck: Present: Normal Range of Motion Respiratory/Chest: Present: Clear to Auscultation, Good Air Exchange. No: Respiratory Distress, Accessory Muscle Use Cardiovascular: Present: Regular Rate and Rhythm, Normal S1, S2. No: Murmurs Abdomen: Present: Tenderness (epigastric). No: Distention, Peritoneal Signs, Rebound, Guarding Back: Present: Normal Inspection. No: CVA Tenderness Upper Extremity: Present: Normal Inspection. No: Cyanosis, Edema Lower Extremity: Present: Normal Inspection. No: Edema Neurological: Present: GCS=15, CN II-XII Intact, Speech Normal Skin: Present: Warm, Dry, Normal Color. No: Rashes Psychiatric: Present: Alert, Oriented x 3, Normal Insight, Normal Concentration Medical Decision Making ED Course and Treatment: 09/09/18 15:39 -Labs/preg -UA -CT abdomen and pelvis -IVF/pepcid/zofran 09/09/18 16:51 -Urine hcg is negative -CT abdomen and pelvis ordered and the patient refused -Labs show no acute findings except K+ 3.5 (potassium chloride 20meq po ordered) -Lipase within normal limit -Mg within normal limit -UA show mild UTI. -Pt. stated that she has to leave, refused to stay for further evaluation and r equest to sign out against medical advise. AMA ER The patient refuses to stay in the Emergency Room (ER) to continue the care and wishes to leave the emergency department against my medical advice. Patient was told that staying in the ER is necessary and a full explanation of the reasons why was given, and understood by the patient with alert and oriented x4. The risk of leaving were explained in laymans term and including but not limited to colitis, c.diff diarrhea, peritonitis, organ failure, sepsis, cholecystitis, appendicitis, abscess , pain, worsening of condition, permanent disability and from an undiagnosed or untreated condition. The patient accepts these risks, and is in my judgment is competent and capable of understanding the clinical situation and explanation of the risk of leaving. The patient is able to verbally repeated me back the above explained risks and benefits back to me, and verbally expressed understanding. Patient was given the opportunity to ask questions and change mind. The patient was instructed regarding the best care for the present symptoms, and to follow up as soon as possible with the primary care doctor including specialist or return to the emergency department at any time for continuing care. You want to sign out against medical advise. You are given pepcid/macrobid and refused to be further evaluated in the ER but you refused the standard of care, stay hydrated, bed rest, follow up with your own pmd and GI today, return to the ER for any new or worsening signs or symptoms. - PA / DELICATESSEN DEPARTMENT MANAGER / Resident Statement MD/DO has reviewed & agrees with the documentation as recorded. Disposition/Present on Arrival - Present on Arrival Any Indicators Present on Arrival: No History of DVT/PE: No History of Uncontrolled Diabetes: No Urinary Catheter: No History of Decub. Ulcer: No History Surgical Site Infection Following: None - Disposition Have Diagnosis and Disposition been Completed?: Yes Diagnosis: Hypokalemia, UTI (urinary tract infection), Non-compliance, Diarrhea Disposition: AGAINST MEDICAL ADVICE Disposition Time: 17:04 Patient Plan: Admission Condition: STABLE Additional Instructions: You want to sign out against medical advise. You are given pepcid/macrobid and refused to be further evaluated in the ER but you refused the standard of care, stay hydrated, bed rest, follow up with your own pmd and GI today, return to the ER for any new or worsening signs or symptoms. Prescriptions: Famotidine [Pepcid] 20 mg PO BID PRN #20 tab PRN Reason: Other Nitrofurantoin Macrocrystals [Macrobid] 100 mg PO BID #14 cap Ondansetron HCl [Zofran] 4 mg PO TID PRN #10 tablet PRN Reason: Other Referrals: Jaime Miles [Primary Care Provider] - Follow up with primary Rob Aguilera MD [Staff Provider] - Follow up with primary Forms: [employer] ([place])
[2018-09-09] MEDS ORDERED: Sodium Chloride 0.9% 1,000 ML IV STA (15:37)
[2018-09-09 16:07] LABS: URINE BILIRUBIN NEGATIVE (NEGATIVE); URINE BLOOD NEGATIVE (NEGATIVE); URINE GLUCOSE (UA) NEGATIVE (NEGATIVE); URINE LEUKOCYTE ESTERASE TRACE Leu/uL (NEGATIVE); URINE PROTEIN NEGATIVE mg/dL (<30 mg/dL); URINE UROBILINOGEN 0.2 E.U./dL (<1 E.U./dL)
[2018-09-09 16:14] LABS: URINE APPEARANCE CLEAR (CLEAR); URINE COLOR YELLOW (YELLOW)
[2018-09-09 16:29] LABS: BASO # 0.01 K/mm3 (0.0-2.0); BASO % 0.1 % (0.0-3.0); EOS % 0.3 % (1.5-5.0); GRAN # 8.34 (1.4-6.5); GRAN % 76.1 % (50.0-68.0); HEMOGLOBIN 13.8 g/dL (12.0-16.0); LYMPH % 18.2 % (22.0-35.0); MEAN CELL VOLUME 92.7 fl (80.0-105.0); MEAN CORPUSCULAR HEMOGLOBIN 31.3 pg (25.0-35.0); MEAN CORPUSCULAR HGB CONC 33.7 g/dl (31.0-37.0); MEAN PLATELET VOLUME 10.3 fl (7.0-11.0); MONO # 0.6 (0.1-0.6); MONO % 5.3 % (1.0-6.0); RBC 4.41 10^6/uL (3.5-6.1); RED CELL DISTRIBUTION WIDTH 12.2 % (11.5-14.5)
[2018-09-09 16:34] LABS: URINE RBC NEGATIVE /hpf (0-2)
[2018-09-09 16:35] LABS: ALB/GLOB RATIO 1.1 (1.1-1.8); ALBUMIN 4.7 g/dL (3.0-4.8); ALT/SGPT 24 U/L (7-56); AST/SGOT 33 U/L (14-36); BLOOD UREA NITROGEN 10 mg/dL (7-21); CALCIUM 9.5 mg/dL (8.4-10.5); GFR NON-AFRICAN AMERICAN > 60; LIPASE 73 U/L (23-300); URINE BACTERIA FEW (NEG)
[2018-09-09] MEDS ORDERED: Potassium Chloride 20 mEq ER Tab PO STA (16:50)
== END 2018-09-09 17:19 | disposition left against medical advice (07) ==
LOC: ED 15:11
DX: E87.6 Hypokalemia (principal); N39.0 Urinary tract infection, site not specified; R19.7 Diarrhea, unspecified; Z91.19 Patient's noncompliance with other medical treatment and regimen
CPT/HCPCS: 80053; 81001; 83690; 83735; 85025; 87086; 96361; 96374; 96375; 99283; J2405; J7030